=== PATIENT | male | born 1965 | race Caucasian/White ===

== ENCOUNTER 2023-05-18 12:27 | Observation (INO) ==
[2023-05-18 12:59] LABS: ABS Basophils 0.1 10^3/uL (0.0-0.1); ABS Lymphocytes 0.8 10^3/uL (1.0-4.8); ABS Monocytes 0.4 10^3/uL (0.0-1.1); ABS Neutrophils 6.2 10^3/uL (1.5-7.6); ABS Nucleated RBC 0.02 10^3/ul; Eosinophil % 0.1 %; Hematocrit 46.6 % (38-53); Hemoglobin 16.3 g/dL (13.2-16.3); Lymphocyte % 11.2 %; Mean Corpuscular Volume 85.8 fL (80-97); Mean Platelet Volume 7.1 fL (7.5-11.2); Nucleated Red Blood Cells % 0.2 /100 WBC (0.0-0.4); Platelet Count 361 10^3/uL (150-450); Red Blood Count 5.44 10^6/uL (4.06-5.63); Red Cell Distribution Width 13.4 % (12-17); White Blood Count 7.5 10^3/uL (3.6-10.2)
[2023-05-18 13:10] LABS: INR 1.05 (0.83-1.13)
[2023-05-18 13:18] LABS: Albumin 4.7 g/dL (3.2-5.2); Albumin/Globulin Ratio 1.2 (1-3); Calcium 9.9 mg/dL (8.6-10.3); Creatinine, Serum 1.01 mg/dL (0.67-1.17); Globulin 3.8 g/dL (2-4); Potassium 3.8 mmol/L (3.5-5.0); Total Bilirubin 1.6 mg/dL (0.2-1.0); Total Protein 8.5 g/dL (6.4-8.9); eGFR CKD-EPI 86.2 (>60)
[2023-05-18 14:23] LABS: Alcohol, S < 13 mg/dL (<13)
[2023-05-18 14:39] LABS: Magnesium 1.9 mg/dL (1.9-2.7)
[2023-05-18 14:49] LABS: Vitamin B12 > 1450 pg/mL (180-914)
[2023-05-18 14:50] LABS: High Sensitivity Troponin 1 Hr 5 pg/mL (<20)
[2023-05-18 15:27] LABS: Urine Appearance Clear; Urine Bacteria Absent (Absent); Urine Bilirubin Negative (Negative); Urine Blood Negative (Negative); Urine Color Yellow; Urine Glucose 1+(50 mg/dL) (Negative); Urine Ketones 1+ (Negative); Urine Nitrite Negative (Negative); Urine Protein Negative (Negative); Urine Red Blood Cell Trace(0-2/hpf) (Absent); Urine Specific Gravity 1.009 (1.002-1.030); Urine Urobilinogen Negative (Negative); Urine White Blood Cell Trace(0-5/hpf) (Absent)
[2023-05-18 15:32] LABS: Urine Benzodiazepine Screen None Detected (None Detect); Urine Cannabinoids Screen None Detected (None Detect); Urine Opiates Screen None Detected (None Detect)
[2023-05-18] MEDS ORDERED: Dextrose 50% Syringe 50 ml 25 GM/50 ML SYRINGE IV PUSH PRN (15:32)
[2023-05-18 15:40] LABS: HDL Cholesterol 45.1 mg/dL
[2023-05-18] MEDS ORDERED: Gadoteridol (CONTRAST) 279.3 MG/ML 10 ML IV ONE (20:16)
[2023-05-19 06:29] LABS: ABS Basophils 0.1 10^3/uL (0.0-0.1); ABS Monocytes 0.6 10^3/uL (0.0-1.1); ABS Nucleated RBC 0.02 10^3/ul; Eosinophil % 0.6 %; Hematocrit 44.3 % (38-53); Hemoglobin 15.4 g/dL (13.2-16.3); Lymphocyte % 25.4 %; Mean Corpuscular Hemoglobin 29.6 pg (27-33); Mean Corpuscular Hgb Conc 34.8 g/dL (31-36); Mean Platelet Volume 7.1 fL (7.5-11.2); Nucleated Red Blood Cells % 0.2 /100 WBC (0.0-0.4); Platelet Count 327 10^3/uL (150-450); Red Blood Count 5.21 10^6/uL (4.06-5.63); Red Cell Distribution Width 13.2 % (12-17); White Blood Count 7.8 10^3/uL (3.6-10.2)
[2023-05-19 06:43] LABS: Calcium 9.4 mg/dL (8.6-10.3); Creatinine, Serum 0.97 mg/dL (0.67-1.17); Magnesium 1.9 mg/dL (1.9-2.7); Potassium 4.1 mmol/L (3.5-5.0); eGFR CKD-EPI 90.5 (>60)
[2023-05-19] MEDS ORDERED: Magnesium Sulfate 2 gm BAG 2 GM/50 ML BAG IVPB ONE (08:00)
[2023-05-19] MEDS ORDERED: Enoxaparin 40 MG/0.4 ML SYR SUBCUT SCH (10:00)
[2023-05-19 16:44] VITALS: BP 150/99
== END 2023-05-19 16:40 | disposition short-term general hospital (02) ==
LOC: ED 12:27 → EDHOLD 12:27 → SUATTDRO 14:19 → EDHOLD 16:56 → MEDTELE 18:42
PROVIDERS: ADMIT Internal Medicine; ATTEND Hospitalist